=== PATIENT | female | born 1950 | race Caucasian/White ===

== ENCOUNTER → 2017-02-23 | Outpatient (CLI) | payer OTHER | LOC: RAD 16:32 | DX: R06.00 Dyspnea, unspecified (principal) ==

== ENCOUNTER → 2020-01-07 | Outpatient (CLI) | payer OTHER | LOC: RAD 07-23 12:10 → EDSEX 14:25 → RAD 14:25 | PROVIDERS: ATTEND Internal Medicine | DX: R91.8 Other nonspecific abnormal finding of lung field (principal) ==

== ENCOUNTER → 2021-02-23 | Outpatient (CLI) | payer OTHER | LOC: RAD 13:47 | PROVIDERS: ATTEND Internal Medicine | DX: J98.4 Other disorders of lung (principal); J44.9 Chronic obstructive pulmonary disease, unspecified ==

== ENCOUNTER → 2021-08-10 | Outpatient (CLI) | payer OTHER | LOC: RAD 14:19 | PROVIDERS: ATTEND Internal Medicine | DX: R91.8 Other nonspecific abnormal finding of lung field (principal); J84.89 Other specified interstitial pulmonary diseases; R06.00 Dyspnea, unspecified; J98.4 Other disorders of lung ==